=== PATIENT | female | born 1955 | race Caucasian/White ===

== ENCOUNTER 2020-06-26 17:49 | Inpatient (IN) ==
[2020-06-26] MEDS ORDERED: NS 0.9% 1000 ml BAG 1,000 ML IV.FLUID IV ONE (19:11)
[2020-06-26] MEDS ORDERED: metroNIDAZOLE IV 500 MG/100ML 500 MG/100 ML BAG IVPB ONE (19:14)
[2020-06-26] MEDS ORDERED: Cefepime 2 GM in NS 0.9% 50 ML 50 ML IVPB ONE (19:14)
[2020-06-26] MEDS ORDERED: Cefepime 2 GM in Dextrose 2 GM/50 ML BAG IV ONE (19:30)
[2020-06-26 19:35] LABS: Activated Partial Thrombo Time 29.7 seconds (26.0-38.0); INR 1.08 (0.82-1.09)
[2020-06-26 19:46] LABS: Albumin 3.3 g/dL (3.2-5.2); C Reactive Protein 187.79 mg/L (<8.01); EGFR African American 74.4 (>60); EGFR Non-African American 61.5 (>60); Globulin 3.2 g/dL (2-4); Potassium 3.7 mmol/L (3.5-5.0); Total Bilirubin 0.8 mg/dL (0.2-1.0); Total Protein 6.5 g/dL (6.4-8.9); Troponin I 0.01 ng/mL (<0.03)
[2020-06-26] MEDS: Vancomycin 1,000 MG in NS 0.9% 250 ml 250 ML IVPB ONE ×2 (19:52→22:40)
[2020-06-26 20:27] LABS: ABS Lymphocytes 0.5 10^3/ul (1.0-4.8); ABS Monocytes 0.4 10^3/ul (0-0.8); ABS Neutrophils 1.8 10^3/ul (1.5-7.7); Hematocrit 39 % (35-47); Hemoglobin 13.5 g/dL (12.0-16.0); Lymphocyte % 17.3 %; Mean Corpuscular HGB Conc 34 g/dL (31-36); Mean Corpuscular Hemoglobin 28 pg (27-31); Mean Corpuscular Volume 82 fL (80-97); Mean Platelet Volume 9.8 fL (7.4-10.4); Nucleated Red Blood Cells % 0.1; Platelet Count 31 10^3/uL (150-450); Red Blood Count 4.76 10^6 /uL (3.70-4.87); Red Cell Distribution Width 15 % (10-15); White Blood Count 2.6 10^3/uL (3.5-10.8)
[2020-06-26 20:31] LABS: TSH Ultra Thyroid Stim Horm 0.52 mcIU/mL (0.34-5.60)
[2020-06-26 20:33] LABS: Influenza A Molecular Negative (Negative); Influenza B Molecular Negative (Negative)
[2020-06-26] MEDS ORDERED: NS 0.9% 1000 ml BAG 1,000 ML IV ONE (21:16)
[2020-06-26 21:47] LABS: Urine Appearance Turbid; Urine Bilirubin Negative (Negative); Urine Blood 1+ (Negative); Urine Color Amber; Urine Glucose Negative (Negative); Urine Ketones Trace (Negative); Urine Nitrite Negative (Negative); Urine Protein 2+(100 mg/dL) (Negative); Urine Specific Gravity 1.023 (1.002-1.030); Urine Urobilinogen Negative (Negative)
[2020-06-26 21:54] LABS: Urine Bacteria 1+ (Absent); Urine Red Blood Cell 3+(>10/hpf) (Absent); Urine Squamous Epithelial Cell Present (Absent); Urine Transitional Epithelial Present (Absent); Urine White Blood Cell 3+(>20/hpf) (Absent)
[2020-06-26] MEDS ORDERED: NS 0.9% 1000 ml BAG 1,000 ML IV SCH (22:45)
[2020-06-26] MEDS ORDERED: Enoxaparin 40 MG/0.4 ML SYR SUBCUT SCH (23:00)
[2020-06-27] MEDS: NS 0.9% 1000 ml BAG 1,000 ML IV SCH ×2 (01:03→05:52)
[2020-06-27 02:46] LABS: Urine Benzodiazepine Screen None Detected (None Detect); Urine Cannabinoids Screen None Detected (None Detect); Urine Opiates Screen None Detected (None Detect)
[2020-06-27 02:57] LABS: Immature Retic Fraction 0.28; RBC Retic Count 3.92 10^6/uL (3.70-4.87); Red Blood Count 3.92 10^6 /uL (3.70-4.87)
[2020-06-27] MEDS: Albuterol 2.5mg/3 ml (0.083%) NEB.SOLN INH SCH ×6 (02:58→23:05)
[2020-06-27 03:01] LABS: ABS Lymphocytes 0.2 10^3/ul (1.0-4.8); ABS Monocytes 0.1 10^3/ul (0-0.8); ABS Neutrophils 2.2 10^3/ul (1.5-7.7); Corrected Retic Count 0.4 % (0.5-1.5); Hematocrit 32 % (35-47); Hematocrit for Retic CNT 32 % (35-47); Hemoglobin 11.1 g/dL (12.0-16.0); Lymphocyte % 6.8 %; Mean Corpuscular HGB Conc 35 g/dL (31-36); Mean Corpuscular Hemoglobin 28 pg (27-31); Mean Corpuscular Volume 82 fL (80-97); Mean Platelet Volume 10.4 fL (7.4-10.4); Nucleated Red Blood Cells % 0.2; Platelet Count 30 10^3/uL (150-450); Red Cell Distribution Width 15 % (10-15); White Blood Count 2.5 10^3/uL (3.5-10.8)
[2020-06-27 03:13] LABS: LDH 235 U/L (140-271)
[2020-06-27 04:55] LABS: Calcium 6.5 mg/dL (8.6-10.3); Potassium 3.4 mmol/L (3.5-5.0)
[2020-06-27 05:01] LABS: EGFR African American 101.9 (>60); EGFR Non-African American 84.2 (>60)
[2020-06-27] MEDS ORDERED: cefTRIAXone 1 gm/50 mL NS BAG 1 GM/50 ML BAG IVPB SCH (08:00)
[2020-06-27] MEDS ORDERED: Lactated Ringers 1000 ml BAG 1,000 ML IV SCH (08:00)
[2020-06-27 09:24] LABS: Folate > 20.00 ng/mL (5.90-24.80); Vitamin B12 > 1450 pg/mL (180-914)
[2020-06-27 09:36] LABS: Magnesium 1.8 mg/dL (1.9-2.7)
[2020-06-27] MEDS ORDERED: Magnesium Sulfate 2 gm BAG 2 GM/50 ML BAG IVPB ONE (09:37)
[2020-06-27] MEDS ORDERED: DOXYcycline 100 MG in NS 0.9% 250 ml 250 ML IVPB SCH (13:00)
[2020-06-27 14:41] LABS: HIV 4th Generation Nonreactive (Nonreactive)
[2020-06-27 14:43] LABS: ABS Lymphocytes 0.3 10^3/ul (1.0-4.8); ABS Monocytes 0.2 10^3/ul (0-0.8); ABS Neutrophils 2.1 10^3/ul (1.5-7.7); Hematocrit 34 % (35-47); Hemoglobin 11.1 g/dL (12.0-16.0); Lymphocyte % 11.8 %; Mean Corpuscular HGB Conc 33 g/dL (31-36); Mean Corpuscular Hemoglobin 28 pg (27-31); Mean Corpuscular Volume 84 fL (80-97); Mean Platelet Volume 9.7 fL (7.4-10.4); Nucleated Red Blood Cells % 0.1; Platelet Count 20 10^3/uL (150-450); Red Blood Count 4.01 10^6 /uL (3.70-4.87); Red Cell Distribution Width 16 % (10-15); White Blood Count 2.6 10^3/uL (3.5-10.8)
[2020-06-27 15:11] LABS: Burr Cells 1+
[2020-06-27 15:15] LABS: Calcium 7.3 mg/dL (8.6-10.3); EGFR African American 87.4 (>60); EGFR Non-African American 72.2 (>60); Potassium 3.8 mmol/L (3.5-5.0)
[2020-06-27 21:43] LABS: Hepatitis C Antibody Negative (Negative)
[2020-06-28] MEDS: Albuterol 2.5mg/3 ml (0.083%) NEB.SOLN INH SCH ×3 (03:17→11:00)
[2020-06-28 08:02] LABS: Hematocrit 35 % (35-47); Hemoglobin 11.9 g/dL (12.0-16.0); Mean Corpuscular HGB Conc 34 g/dL (31-36); Mean Corpuscular Hemoglobin 28 pg (27-31); Mean Corpuscular Volume 83 fL (80-97); Red Blood Count 4.27 10^6 /uL (3.70-4.87); Red Cell Distribution Width 16 % (10-15); White Blood Count 2.7 10^3/uL (3.5-10.8)
[2020-06-28 08:28] LABS: Calcium 7.7 mg/dL (8.6-10.3); EGFR African American 109.1 (>60); EGFR Non-African American 90.2 (>60); Potassium 3.2 mmol/L (3.5-5.0)
[2020-06-28 09:19] LABS: ABS Lymphocytes 1.5 10^3/ul (1.0-4.8); ABS Monocytes 0.3 10^3/ul (0-0.8); ABS Neutrophils 0.9 10^3/ul (1.5-7.7); Eosinophil % 0.3 %; Lymphocyte % 55.3 %; Mean Platelet Volume 11.3 fL (7.4-10.4); Nucleated Red Blood Cells % 0.1; Platelet Count 24 10^3/uL (150-450)
[2020-06-28 11:12] VITALS: BP 91/57
[2020-06-29 18:56] LABS: Anaplasma phagocytophilum Positive (Negative); B. miyamotoi PCR, B Negative (Negative); Babesia divergens/MO-1 Negative (Negative); Babesia ducani Negative (Negative); Ehrlichia chaffeensis Negative (Negative); Ehrlichia ewingii/canis Negative (Negative); Ehrlichia muris eauclairensis Negative (Negative)
[2020-06-30 15:19] LABS: Anaplasma phagocytophilium <1:64 titer (<1:64); Ehrlichia chaffeensis IgG AB <1:64 titer (<1:64); Lyme Disease Serology Positive (Negative)
[2020-06-30 23:49] LABS: CMV DNA DETECT/QT, P Undetected IU/mL (Undetected)
[2020-07-01 00:42] LABS: IgG Immunoblot Positive (Negative); IgM Immunoblot Positive (Negative)
== END 2020-06-28 15:00 | disposition home or self-care (01) | DRG 872 ==
LOC: ED 17:49 → MED 23:38
PROVIDERS: ADMIT Hospitalist; ATTEND Internal Medicine